=== PATIENT | female | born 1935 | race Caucasian/White ===

== ENCOUNTER 2017-07-07 16:45 | Emergency (ER) | payer MEDICARE ==
[~2017-07-07] VITALS: Ht 172.7 cm; Wt 51.0 kg
[2017-07-07] MEDS ORDERED: ASPIRIN 81 MG TABLET CHEW ONE (17:19)
[2017-07-07] MEDS ORDERED: SODIUM CHLORIDE FLUSH 10ML SYR IVF ONE (17:30)
[2017-07-07] MEDS ORDERED: SODIUM CHLORIDE 0.9% 1,000ML IVBOLUS ONE (17:30)
[2017-07-07] MEDS ORDERED: ASPIRIN 81 MG TABLET CHEW PO ONE (17:30)
[2017-07-07 17:31] LABS: HEMATOCRIT 36.3 % (34.6-47.8); WHITE BLOOD COUNT 11.5 x10^3/uL (3.4-10)
[2017-07-07 17:37] LABS: BLOOD UREA NITROGEN 17 mg/dL (7-18)
[2017-07-07 17:42] LABS: IS PT STATUS REG ER OR PRE ER? YES
[2017-07-07 18:33] VITALS: BP 115/48
== END 2017-07-07 18:34 | disposition home or self-care (01) ==
LOC: ED 17:22
DX: R55 Syncope and collapse (principal)
CPT/HCPCS: 36415; 71020; 80048; 82040; 83880; 84484; 85025; 93005; 96360; 99285; J7030